=== PATIENT | female | born 1950 | race Caucasian/White ===

== ENCOUNTER 2019-01-26 15:37 | Emergency (ER) | payer BC ==
--- NOTE | 2019-01-26 16:31 | EDM.PDOC ---
ED HPI GENERAL MEDICAL PROBLEM - General Chief Complaint: Lower Extremity Injury/Pain Stated Complaint: ANKLE/LEG INJURY Time Seen by Provider: 01/26/19 16:31 Source of Information: Reports: Patient History Limitations: Reports: No Limitations - History of Present Illness INITIAL COMMENTS - FREE TEXT/NARRATIVE: HISTORY AND PHYSICAL: History of present illness: Patient is a 68-year-old female presents to the ED with complaint of right ankle injury. She states she stepped in a hole this afternoon twisting her right ankle and felt a pop. She states she has not been able to bear weight. Denies proximal pain or distal numbness/tingling. Review of systems: As per history of present illness and below otherwise all systems reviewed and negative. Past medical history: As per history of present illness and as reviewed below otherwise noncontributory. Surgical history: As per history of present illness and as reviewed below otherwise noncontributory. Social history: No reported history of drug or alcohol abuse. Family history: As per history of present illness and as reviewed below otherwise noncontributory. Physical exam: General: Patient sitting comfortably in no acute distress and nontoxic appearing HEENT: Atraumatic, normocephalic, pupils reactive, negative for conjunctival pallor or scleral icterus, mucous membranes moist, throat clear, neck supple, nontender, trachea midline. No meningeal signs. Lungs: Clear to auscultation, breath sounds equal bilaterally, chest nontender. Heart: S1S2, regular, negative for clicks, rubs, or overt murmur. Abdomen: Soft, nondistended, nontender. Negative for masses or hepatosplenomegaly. Negative for costovertebral tenderness. No rigidity, rebound , guarding. Pelvis: Stable nontender. Genitourinary: Deferred. Rectal: Deferred. Extremities: Swelling to the right lateral malleolus with pain to palpation. negative for cords or calf pain. Neurovascular unremarkable. Neuro: Awake, alert, oriented. Cranial nerves II through XII unremarkable. Cerebellum unremarkable. Motor and sensory unremarkable throughout. Exam nonfocal. Notes: Diagnostics: x-ray right ankle Therapeutics: Post mold splint Crutches Prescriptions: Tramadol (#12) Impression: Distal right fibula fracture Plan: 1. Ice, elevate, and motrin or tylenol as needed. You may take Tramadol as needed for severe pain. Non-weight bearing until ortho follow up. 2. Follow up with orthopedics, please call the number provided to schedule an appointment 3. Return to ED as needed as discussed Definitive disposition and diagnosis as appropriate pending reevaluation and review of above. L ankle Pain Score (Numeric/FACES): 8 - Related Data Allergies Allergy/AdvReac Type Severity Reaction Status Date / Time hydrocodone Allergy Itching Verified 01/26/19 16:23 oxycodone Allergy Itching Verified 01/26/19 16:23 Home Meds: Home Meds Amiodarone HCl 100 mg PO DAILY 01/26/19 [History] Amitriptyline [Elavil] 25 mg PO DAILY 01/26/19 [History] Non-Formulary Medication [NF Drug] 1 tab PO DAILY 01/26/19 [History] Nortriptyline HCl [Pamelor] 10 mg PO DAILY 01/26/19 [History] Pantoprazole Sodium [Protonix] 40 mg PO DAILY 01/26/19 [History] Potassium Chloride 1 tab PO DAILY 01/26/19 [History] Rivaroxaban [Xarelto] 20 mg PO DAILY 01/26/19 [History] amLODIPine [Norvasc] 1 tab PO DAILY 01/26/19 [History] traMADol [Ultram] 50 mg PO Q6H PRN #12 tab 01/26/19 [Rx] Review of Systems - Review of Systems Review Of Systems: ROS reveals no pertinent complaints other than HPI. ED EXAM, GENERAL - Physical Exam Exam: See Below (See dictation) Course - Vital Signs Last Recorded V/S: Last Vital Signs Temp 97.0 F 01/26/19 16:20 Pulse 76 01/26/19 17:51 Resp 18 01/26/19 17:51 BP 150/77 H 01/26/19 17:51 Pulse Ox 98 01/26/19 17:51 - Orders/Labs/Meds Orders: Active Orders 24 hr Category Date Time Status Vaccines to be Administered [RC] PER UNIT ROUTINE Care 01/26/19 17:39 Active Meds: Medications Discontinued Medications Generic Name Dose Route Start Last Admin Trade Name Freq PRN Reason Stop Dose Admin Octyl Cyanoacrylate 1 applic 01/26/19 17:26 01/26/19 17:38 Dermabond Advance TOP 01/26/19 17:27 Not Given ONETIME ONE Departure - Departure Time of Disposition: 17:20 Disposition: Home, Self-Care 01 Condition: Good Clinical Impression: Fracture of distal end of left fibula - Discharge Information Prescriptions: traMADol [Ultram] 50 mg PO Q6H PRN #12 tab PRN Reason: Pain (Severe 7-10) Instructions: Tibial and Fibular Fractures Referrals: PCP,Unknown [Primary Care Provider] - Forms: ED Department Discharge Additional Instructions: The following information is given to patients seen in the emergency department who are being discharged to home. This information is to outline your options for follow-up care. We provide all patients seen in our emergency department with a follow-up referral. The need for follow-up, as well as the timing and circumstances, are variable depending upon the specifics of your emergency department visit. If you don't have a primary care physician on staff, we will provide you with a referral. We always advise you to contact your personal physician following an emergency department visit to inform them of the circumstance of the visit and for follow-up with them and/or the need for any referrals to a consulting specialist. The emergency department will also refer you to a specialist when appropriate. This referral assures that you have the opportunity for follow-up care with a specialist. All of these measure are taken in an effort to provide you with optimal care, which includes your follow-up. Under all circumstances we always encourage you to contact your private physician who remains a resource for coordinating your care. When calling for follow-up care, please make the office aware that this follow-up is from your recent emergency room visit. If for any reason you are refused follow-up, please contact the [facility] Emergency Department at and asked to speak to the emergency department charge nurse. [facility] Professional Building [address] [place] [address], [address] [place] [address] [address] Kirk, Orthopedist [facility] [address] [place] [address] Dr Uriostegui - Dr Benavides - Dr Ruggiero [facility] [address] [place] [address] [facility] [address] [place] [address] 1. Ice, elevate, and motrin or tylenol as needed. You may take Tramadol as needed for severe pain. Non-weight bearing until ortho follow up. 2. Follow up with orthopedics, please call the number provided to schedule an appointment 3. Return to ED as needed as discussed - My Orders Last 24 Hours: My Active Orders 01/26/19 17:39 Vaccines to be Administered [RC] PER UNIT ROUTINE - Assessment/Plan Last 24 Hours: My Active Orders 01/26/19 17:39 Vaccines to be Administered [RC] PER UNIT ROUTINE
--- NOTE | 2019-01-26 17:20 | CR ---
Indication: Left ankle pain Technique: Three views of the left ankle were obtained. Comparison: None Findings: A fracture of the distal fibula is identified. The ankle mortise is intact. The talar dome is intact. Impression: Distal fibular fracture. Dictated by Magnolia Britt MD @ Jan 26 2019 5:17PM Signed by Dr. Magnolia Britt @ Jan 26 2019 5:18PM
[2019-01-26] MEDS ORDERED: Octyl 2-Cyanoacrylate 1 Tube TOP ONE (17:26)
[2019-01-26] MEDS ORDERED: Diphtheria,Pertussis(Acell),Tetanus Vaccine 0.5 ML Syringe IM ONE (17:39)
== END 2019-01-26 17:52 | disposition home or self-care (01) ==
LOC: MW.ED 15:37
DX: S82.832A Other fracture of upper and lower end of left fibula, initial encounter for closed fracture (principal); Z88.5 Allergy status to narcotic agent; Z79.899 Other long term (current) drug therapy; W22.8XXA Striking against or struck by other objects, initial encounter
CPT/HCPCS: 73610-26-LT; 73610-LT; 99283-25